=== PATIENT | male | born 1960 | race Caucasian/White ===

== ENCOUNTER → 2020-02-18 | Outpatient (REF) | payer BC ==
[2020-02-18 13:09] LABS: APPEARANCE, URINE CLEAR (CLEAR); BACTERIA, URINE AUTO NEGATIVE (NEGATIVE); BILIRUBIN, URINE AUTO NEGATIVE (NEGATIVE); BLOOD, URINE BLOOD NEGATIVE (NEGATIVE); COLOR, URINE YELLOW (YELLOW); GLUCOSE, URINE (UA) AUTO 3+ mg/dL (NEGATIVE); KETONE, URINE AUTO NEGATIVE (NEGATIVE); LEUKOCYTE ESTERASE, URINE AUTO NEGATIVE (NEGATIVE); NITRITE, URINE AUTO NEGATIVE (NEGATIVE); PROTEIN, URINE AUTO NEGATIVE (NEGATIVE); RBC, URINE AUTO 1 /HPF (0-3); SPECIFIC GRAVITY URINE AUTO 1.036 (1.002-1.035); SQUAMOUS EPITHELIAL CELL UR AU 0 /HPF (0-6); UROBILINOGEN, URINE AUTO 0.2 mg/dL (0.0-2.0); WBC, URINE AUTO 1 /HPF (0-3)
== END ==
LOC: M SMT 12:42
PROVIDERS: ATTEND Nurse Practitioner Women's Health
DX: R97.20 Elevated prostate specific antigen [PSA] (principal)

== ENCOUNTER → 2020-02-22 | Outpatient (CLI) | payer BC ==
--- NOTE | 2020-02-22 12:51 | REPPI ---
Prostate sonography: History: Elevated PSA Sonographic findings: Trans rectal prostate sonography demonstrates unremarkable seminal vesicles. Prostate gland is heterogeneously enlarged with calcifications and cystic changes noted. Glandular dimensions are measured at 5.8 x 4.0 x 5.9 cm with a calculated glandular volume of 71.3 ml. There is a 0.7 cm hypoechoic area in the right mid gland anteriorly. There is a 0.9 cm hypoechoic area on the left mid gland. Transrectal sonographic guidance is provided to Dr. Rosales who performed trans rectal ultrasound guided needle biopsy procedure . Electronically Signed by Nba Harper MD 02/22/2020 12:42 P
== END ==
LOC: M SMT PRO 09:01
PROVIDERS: ATTEND Urology
DX: C61 Malignant neoplasm of prostate (principal)
CPT/HCPCS: 76872; 76942; G0416

== ENCOUNTER → 2020-02-29 | Outpatient (CLI) | payer BC ==
[2020-02-29 17:57] LABS: BLOOD UREA NITROGEN 17 MG/DL (7-18); CALCIUM LEVEL 9.3 MG/DL (8.5-10.1); CARBON DIOXIDE LEVEL 30 MEQ/L (21-32); CHLORIDE LEVEL 103 MEQ/L (98-107); CREATININE FOR GFR 0.98 MG/DL (0.70-1.30); GLOMERULAR FILTRATION RATE > 60.0 (>56); GLUCOSE, FASTING 251 MG/DL (70-100); POTASSIUM SERUM 4.1 MEQ/L (3.5-5.1); SODIUM LEVEL 139 MEQ/L (136-145)
== END ==
LOC: M LAB 16:22
PROVIDERS: ATTEND Urology
DX: C61 Malignant neoplasm of prostate (principal)

== ENCOUNTER → 2020-04-01 | Outpatient (CLI) | payer BC ==
[~2020-04-01] MED LIST: ATOR1TAB19 PO; CIPR-249 PO; DOCU100C16 PO; INSUHUMDS SC; LISI10TA4 PO; METF10004 PO; PERCOCET PO; TRES100I SC; TRUL0.5I SC
== END ==
LOC: M LABSMTC 08:01
PROVIDERS: ATTEND Anesthesiology
DX: Z01.818 Encounter for other preprocedural examination (principal); Z11.59 Encounter for screening for other viral diseases

== ENCOUNTER 2020-04-04 07:30 | Inpatient (IN) | payer BC ==
[~2020-04-04] VITALS: Ht 185.4 cm; Wt 113.1 kg
[~2020-04-04 07:30] MED LIST changes: -CIPR-249 PO; -DOCU100C16 PO; +HEPARIN SOD (PORCINE) 5000UNITS/ML VIAL (J1644 PER 1000UNITS) SQ ONE; +LR 1,000 ML IV ONE; -PERCOCET PO; +ceFAZolin SOD 1 GM in D5W MINI-BAG PLUS 50 ML IV ONE; +ceFAZolin SOD 2 GM in IV 1 EA IV ONE
[2020-04-04] MEDS ORDERED: fentaNYL 250 MCG/5 ML INJECTION (J3010) As Ordered ONE (09:40)
[2020-04-04] MEDS ORDERED: ROCURONIUM BROMIDE 50 MG/5 ML VIAL As Ordered ONE ×2 (09:40→12:48)
[2020-04-04] MEDS ORDERED: LIDOCAINE 2% 100MG/5ML SDV (FOR ANES.) As Ordered ONE (09:40)
[2020-04-04] MEDS ORDERED: propofoL 200 MG/20 ML VIAL As Ordered ONE ×2 (09:40→16:47)
[2020-04-04] MEDS ORDERED: MIDAZOLAM INJ 2MG/2ML VIAL (J2250 PER 1MG) As Ordered ONE (09:40)
[2020-04-04] MEDS ORDERED: ceFAZolin SOD 2 GM in IV 1 EA IV ONE (11:30)
[2020-04-04] MEDS ORDERED: ceFAZolin SOD 1 GM in D5W MINI-BAG PLUS 50 ML IV ONE (11:30)
[2020-04-04] MEDS ORDERED: LIDOCAINE 1% SDV 30ML VIAL As Ordered ONE (11:35)
[2020-04-04] MEDS ORDERED: BUPIVACAINE HCL 0.25% 30ML VIAL As Ordered ONE (11:35)
[2020-04-04] MEDS ORDERED: NS 1,000 ML IV SCH (12:08)
[2020-04-04] MEDS ORDERED: MORPHINE 2 MG/ML 1ML VIAL (J2270) IV PRN (12:15)
[2020-04-04] MEDS ORDERED: GLUCAGON INJ 1MG VIAL SC PRN (12:15)
[2020-04-04] MEDS ORDERED: GLUCOSE 4GM CHEW TABLET PO PRN (12:15)
[2020-04-04] MEDS ORDERED: DEXTROSE 50% 50 ML SYRINGE IV PRN (12:15)
[2020-04-04] MEDS ORDERED: PERCOCET 5MG/325MG TAB PO PRN ×3 (12:15→18:30)
[2020-04-04] MEDS ORDERED: HYDROmorphone HCL 2 MG/ML 1ML VIAL (J1170) As Ordered ONE (12:49)
[2020-04-04] MEDS ORDERED: ONDANSETRON 4MG/2ML VIAL As Ordered ONE (13:43)
[2020-04-04] MEDS ORDERED: ACETAMINOPHEN 1000MG 100ML IV BTL (OFIRMEV) (J0131 PER 10MG) As Ordered ONE (13:44)
[2020-04-04] MEDS ORDERED: KETOROLAC 60 MG/2 ML VIAL As Ordered ONE (13:44)
[2020-04-04] MEDS ORDERED: METOCLOPRAMIDE INJ 10MG/2ML VIAL (J2765 PER 1) As Ordered ONE (13:44)
[2020-04-04] MEDS: HumaLOG INSULIN (NovoLOG) PER UNIT SC SCH ×2 (17:30→21:00)
--- NOTE | 2020-04-04 18:24 | ROOPDOC ---
[facility] Report Of Operation Report of Operation DATE OF PROCEDURE: 04/04/20 PREPROCEDURE DIAGNOSES: Prostate Cancer. POSTPROCEDURE DIAGNOSES: Prostate Cancer. PROCEDURE: Robotic-assisted Laparoscopic Radical Prostatectomy with Bilateral Pelvic Lymph Node Dissection. SURGEON: Deb Auguste MD GRIPS: Xiomy Bae NP ANESTHESIA: General. OPERATIVE INDICATIONS: This is a 73 year old male with high risk clinical T1c Leatha 4+3 prostate cancer, here today for the above procedure for treatment. DESCRIPTION OF PROCEDURE: The patient was brought to the operating room and general anesthesia was induced. Prophylactic antibiotics were infused. He was then placed in the supine position and prepped and draped in the usual sterile fashion. At this point, a Arroyo catheter was inserted into the bladder and the balloon was filled with 10 mL of sterile water. We then made a midline incision just above the umbilicus for an 8 mm port. A Veress needle was utilized to achieve pneumoperitoneum. Next, an 8 mm port was inserted into the incision and subsequently a camera was inserted. There were no injuries from the Veress needle or initial trocar placement. Then three robotic ports were placed in the usual configuration in line just b elow the level of the umbilicus. A 12 mm front end assistant port was placed just lateral and at the level of the umbilicus. Once all the ports were placed, the robot was docked. Lysis of adhesions between the sigmoid colon and abdominal wall was then performed. Next, the bladder was then released from the anterior abdominal wall using electrocautery. Once the bladder was dropped, the fat overlying the prostate was cleared using electrocautery. The superficial dorsal vein was controlled with electrocautery. The endopelvic fascia was opened on both sides and the dorsal venous complex was cleared. Next, a #0 Vicryl [id number] stitch was placed around the dorsal venous complex. Once that was done, the bladder was opened and dissected away from the prostate. At this point, the prostate was lifted up. At this point, the prostate was lifted up. The vasa deferentia were identified in the midline. They were controlled with electrocautery and then transected. The seminal vesicles were also dissected off bilaterally. I then started dissecting the prostate off the rectum. This took a moderate amount of time as the prostate appeared to be more adhered to the rectum and inflamed posteriorly than what his normally seen. Whereas the prostate can normally be dissected away from the rectum using mostly blunt dissection, this was not possible. After carefully dissecting the prostate off the rectum using cold scissors, and ligating and transecting the pedicles, the prostate was only connected by the urethra. At this point, the dorsal venous complex was transected with electrocautery. The urethra was then opened and the catheter was withdrawn and the posterior urethra was transected, thus freeing the prostate. At this point, we checked for hemostasis and it did appear very good. Next, we performed bilateral pelvic lymph node dissection. This was done in a standard fashion. The limits of dissection were the iliac vein proximally, the obturator nerve distally, the pelvic sidewall laterally, and the bladder mediall y. All lymphatic tissue within these limits was removed. I performed the same procedure on both the right and left sides. Hemostasis was then obtained with a combination of bipolar electrocautery and Weck clips. The lymphatic packets were then placed in separate Endo Catch bags for future retrieval. Once hemostasis was confirmed, I then moved on to perform the vesicourethral avni stomosis. The vesicourethral anastomosis was performed in running fashion using a Quill stitch. Once this was done, the final #20-[place] Arroyo catheter was placed. The balloon was filled with 15 mL of sterile water. Upon completion of the vesicourethral anastomosis, it was tested by filling the bladder with sterile water. The anastomosis appeared to be watertight. At this point, the prostate and seminal vesicles were placed in an Endo Catch bag for future retrieval. The robot was then undocked. A Marielena fascial closure device was utilized to place a #0 Vicryl suture between the fascia of the 12 mm front end assistant port. At this point, a Ebenezer- Pearson drain was brought in through the left robotic port skin site and the drain was positioned anterior to the bladder. The drain was secured to the skin with #2-0 Ethilon suture. Next, all the remaining ports were removed and there did not appear to be any bleeding from any of the port sites. The prostate, as well as the lymphatic packets were then extracted from the camera port site after the skin was extended. The fascia in this incision was then closed with a running #0 Vicryl stitch. The previously placed #0 Vicryl free ties through the front end assistant port were then tied down and all incisions were irrigated. Last, all of the incisions were closed with running subcuticular #4-0 Monocryl sutures. Local anesthesia was applied. Dermabond was then applied to the incisions. This marked the conclusion of the procedure. The patient was then awakened from anesthesia and transported to the recovery room in stable condition. ESTIMATED BLOOD LOSS: 400 mL. COMPLICATIONS: None. SPECIMENS: Prostate and seminal vesicles, right pelvic lymph nodes, left pelvic lymph nodes. PLAN: The patient will be admitted to the hospital postoperatively, and he will likely be discharged home within the next 1-2 days. DEB AUGUSTE MD April 04, 2020 18:24
[2020-04-04] MEDS ORDERED: ONDANSETRON 4MG/2ML VIAL IV PRN (18:30)
[2020-04-04] MEDS ORDERED: fentaNYL 100 MCG/2 ML INJECTION (J3010) IV PRN (18:30)
[2020-04-04 19:12] LABS: HEMOGLOBIN 14.4 g/dl (13.5-17.5); MEAN CORPUSCULAR HEMOGLOBIN 28.4 pg (27.0-33.0); MEAN CORPUSCULAR HGB CONC 32.7 g/dl (32.0-36.5); MEAN CORPUSCULAR VOLUME 86.8 fl (80.0-96.0); PLATELET COUNT, AUTOMATED 336 10^3/uL (150-450); RED BLOOD COUNT 5.07 10^6/uL (4.30-6.10); WHITE BLOOD COUNT 17.2 10^3/uL (4.0-10.0)
[2020-04-04 19:35] LABS: BLOOD UREA NITROGEN 28 MG/DL (7-18); CALCIUM LEVEL 8.2 MG/DL (8.5-10.1); CARBON DIOXIDE LEVEL 23 MEQ/L (21-32); CHLORIDE LEVEL 107 MEQ/L (98-107); CREATININE FOR GFR 1.17 MG/DL (0.70-1.30); GLOMERULAR FILTRATION RATE > 60.0 (>56); GLUCOSE, FASTING 193 MG/DL (70-100); POTASSIUM SERUM 4.8 MEQ/L (3.5-5.1); SODIUM LEVEL 140 MEQ/L (136-145)
[2020-04-04 20:05] VITALS: BP 154/76
[2020-04-04 20:30] VITALS: BP 148/72
[2020-04-04 21:00] VITALS: BP 142/73
[2020-04-04] MEDS: DOCUSATE SODIUM 100 MG CAP PO SCH (21:14)
[2020-04-04] MEDS: ONDANSETRON 4MG/2ML VIAL IV PRN (21:14)
[2020-04-04] MEDS: HEPARIN SOD (PORCINE) 5000UNITS/ML VIAL (J1644 PER 1000UNITS) SC SCH (21:14)
[2020-04-04] MEDS: ATORVASTATIN 10 MG TAB PO SCH (21:14)
[2020-04-04] MEDS: lisinopriL 10 MG TAB PO SCH (21:14)
[2020-04-04] MEDS: ceFAZolin SOD 1 GM in D5W MINI-BAG PLUS 50 ML IV SCH (21:15)
[2020-04-04 22:00] VITALS: BP 137/71
[2020-04-04 23:00] VITALS: BP 133/71
[2020-04-05] VITALS (8 sets, daily range): BP systolic 126–144; BP diastolic 60–85; O2SAT 94–95
[2020-04-05] MEDS: ceFAZolin SOD 1 GM in D5W MINI-BAG PLUS 50 ML IV SCH ×2 (03:00→12:51)
[2020-04-05] MEDS: ONDANSETRON 4MG/2ML VIAL IV PRN (03:25)
[2020-04-05] MEDS: HEPARIN SOD (PORCINE) 5000UNITS/ML VIAL (J1644 PER 1000UNITS) SC SCH ×3 (06:27→22:27)
[2020-04-05 06:54] LABS: HEMATOCRIT 40.5 % (42.0-52.0); HEMOGLOBIN 13.4 g/dl (13.5-17.5); MEAN CORPUSCULAR HEMOGLOBIN 28.9 pg (27.0-33.0); MEAN CORPUSCULAR HGB CONC 33.1 g/dl (32.0-36.5); MEAN CORPUSCULAR VOLUME 87.5 fl (80.0-96.0); PLATELET COUNT, AUTOMATED 310 10^3/uL (150-450); RED BLOOD COUNT 4.63 10^6/uL (4.30-6.10); WHITE BLOOD COUNT 14.3 10^3/uL (4.0-10.0)
[2020-04-05 07:12] LABS: BLOOD UREA NITROGEN 35 MG/DL (7-18); CALCIUM LEVEL 7.9 MG/DL (8.5-10.1); CARBON DIOXIDE LEVEL 17 MEQ/L (21-32); CHLORIDE LEVEL 103 MEQ/L (98-107); CREATININE FOR GFR 1.22 MG/DL (0.70-1.30); GLOMERULAR FILTRATION RATE > 60.0 (>56); GLUCOSE, FASTING 253 MG/DL (70-100); SODIUM LEVEL 138 MEQ/L (136-145)
--- NOTE | 2020-04-05 07:47 | IPNPDOC ---
Subjective Review oF Systems Chief Complaint The patient is a 60-year-old male admitted with a reason for visit of Prostate Cancer. Events since Last Encounter The patient vomited last night and early this morning. He feels better now, denying nausea. Good pain control. He ambulated once this morning. No f/c/ns. Objective Physical Examination General Exam: Alert, Cooperative, No Acute Distress ABDOMEN EXAM: Soft, Tenderness (mild), Other (incisions clean/dry/intact; MERARI draining serosanguinous fluid) Skin Exam: Nl turgor and temperature Neuro Exam: Normal Speech Psych Exam: Mental status NL, Mood NL Other physical findings catheter draining light pink urine Vital Signs/I&O Vital Signs Date Time Temp Pulse Resp B/P (MAP) Pulse Ox O2 Delivery O2 Flow Rate FiO2 04/05/20 06:00 98.8 111 17 127/85 (99) 95 Room Air I&O- Last 24 Hours up to 6 AM 04/05/20 06:00 Intake Total 3185 ml Output Total 2163 ml Balance 1022 ml Laboratory Data Labs 24H Laboratory Tests 2 04/04/20 11:36: Bedside Glucose (Misc Panel) 133H 04/04/20 18:45: Bedside Glucose (Misc Panel) 183H 04/04/20 18:56: Nucleated Red Blood Cells % (auto) 0.0, Anion Gap 10, Glomerular Filtration Rate > 60.0, Calcium Level 8.2L 04/04/20 20:56: Bedside Glucose (Misc Panel) 210H 04/05/20 05:38: Nucleated Red Blood Cells % (auto) 0.0, Anion Gap 18H, Glomerular Filtration Rate > 60.0, Calcium Level 7.9L CBC/BMP Laboratory Tests 04/04/20 18:56 04/05/20 05:38 FSBS Laboratory Tests Test 04/04/20 11:36 04/04/20 18:45 04/04/20 20:56 Range/Units Bedside Glucose (Misc Panel) 133 183 210 70-105 MG/DL Assessment/Plan Date Seen The patient was seen on 04/05/20. Patient Summary This is a 60 y/o M POD1 s/p RALP w/ BPLND. Good pain control. Had emesis this morning, but nausea now resolved. Hb 13.4. Cr 1.2. Good UOP. Normal MERARI output. Plan/VTE VTE Prophylaxis Ordered?: Yes VTE Exclusion Mechanical Proph: N/A:VTE Prophy Ordered VTE Exclusion Pharmacological: N/A:VTE Prophy Ordered Plan/Urinary Catheter Urinary Catheter: Other Catheter: (catheter will need to stay in for at least 7 days for healing of vesicourethral anastomosis) Plan - d/c IVF - percocet prn pain - strict I/Os - cont home meds - sliding scale insulin - SCDs when in bed - ambulate - incentive spirometry - anticipate discharge home tomorrow DEB AUGUSTE MD April 05, 2020 07:47
[2020-04-05] MEDS: ATORVASTATIN 10 MG TAB PO SCH (08:11)
[2020-04-05] MEDS: lisinopriL 10 MG TAB PO SCH (08:12)
[2020-04-05] MEDS: HumaLOG INSULIN (NovoLOG) PER UNIT SC SCH ×4 (08:12→20:33)
[2020-04-05] MEDS: DOCUSATE SODIUM 100 MG CAP PO SCH ×2 (08:12→20:32)
[2020-04-05] MEDS: ACETAMINOPHEN TAB 650MG DOSE (2X325MG) PO PRN (20:33)
[2020-04-06 02:00] VITALS: BP 128/71
[2020-04-06 06:00] VITALS: BP 120/62
[2020-04-06] MEDS ORDERED: CIPROFLOXACIN 500MG TABLET PO SCH (06:00)
[2020-04-06 06:22] LABS: HEMATOCRIT 35.8 % (42.0-52.0); HEMOGLOBIN 11.7 g/dl (13.5-17.5); MEAN CORPUSCULAR HEMOGLOBIN 28.5 pg (27.0-33.0); MEAN CORPUSCULAR HGB CONC 32.7 g/dl (32.0-36.5); MEAN CORPUSCULAR VOLUME 87.1 fl (80.0-96.0); PLATELET COUNT, AUTOMATED 231 10^3/uL (150-450); RED BLOOD COUNT 4.11 10^6/uL (4.30-6.10)
[2020-04-06] MEDS: HEPARIN SOD (PORCINE) 5000UNITS/ML VIAL (J1644 PER 1000UNITS) SC SCH (06:27)
[2020-04-06 06:49] LABS: BLOOD UREA NITROGEN 29 MG/DL (7-18); CALCIUM LEVEL 8.3 MG/DL (8.5-10.1); CARBON DIOXIDE LEVEL 26 MEQ/L (21-32); CHLORIDE LEVEL 105 MEQ/L (98-107); GLOMERULAR FILTRATION RATE > 60.0 (>56); GLUCOSE, FASTING 196 MG/DL (70-100); POTASSIUM SERUM 4.4 MEQ/L (3.5-5.1); SODIUM LEVEL 139 MEQ/L (136-145)
[2020-04-06] MEDS: ACETAMINOPHEN TAB 650MG DOSE (2X325MG) PO PRN (06:54)
[2020-04-06] MEDS ORDERED: CIPR-249 PO (08:00)
[2020-04-06] MEDS ORDERED: PERCOCET PO (08:00)
[2020-04-06] MEDS ORDERED: DOCU100C16 PO (08:00)
[2020-04-06 08:06] VITALS: BP 124/68
[2020-04-06] MEDS: DOCUSATE SODIUM 100 MG CAP PO SCH (08:06)
[2020-04-06] MEDS: HumaLOG INSULIN (NovoLOG) PER UNIT SC SCH ×2 (08:06→12:00)
[2020-04-06] MEDS: ATORVASTATIN 10 MG TAB PO SCH (08:06)
[2020-04-06] MEDS: lisinopriL 10 MG TAB PO SCH (08:06)
--- NOTE | 2020-04-06 09:04 | IPNPDOC ---
Subjective Review oF Systems Chief Complaint The patient is a 60-year-old male admitted with a reason for visit of Prostate Cancer. Events since Last Encounter No acute events o/n. Good pain control. No n/v. Passing flatus. Ambulating well. No f/c/ns. Objective Physical Examination General Exam: Alert, Cooperative, No Acute Distress ABDOMEN EXAM: Soft, Tenderness (mild), Other (incisions clean/dry/intact; MERARI draining serosanguinous fluid) Skin Exam: Nl turgor and temperature Neuro Exam: Normal Speech Psych Exam: Mental status NL, Mood NL Other physical findings catheter draining pink urine Vital Signs/I&O Vital Signs Date Time Temp Pulse Resp B/P (MAP) Pulse Ox O2 Delivery O2 Flow Rate FiO2 04/06/20 08:06 124/68 04/06/20 06:00 97.6 96 20 98 04/06/20 02:00 Room Air I&O- Last 24 Hours up to 6 AM 04/06/20 06:00 Intake Total 2175 ml Output Total 2630 ml Balance -455 ml Laboratory Data Labs 24H Laboratory Tests 2 04/05/20 11:44: Bedside Glucose (Misc Panel) 279H 04/05/20 16:30: Bedside Glucose (Misc Panel) 276H 04/05/20 20:27: Bedside Glucose (Misc Panel) 305H 04/06/20 05:42: Nucleated Red Blood Cells % (auto) 0.0, Anion Gap 8, Glomerular Filtration Rate > 60.0, Calcium Level 8.3L CBC/BMP Laboratory Tests 04/06/20 05:42 FSBS Laboratory Tests Test 04/05/20 11:44 04/05/20 16:30 04/05/20 20:27 Range/Units Bedside Glucose (Misc Panel) 279 276 305 70-105 MG/DL Assessment/Plan Date Seen The patient was seen on 04/06/20. Patient Summary This is a 60 y/o M POD2 s/p RALP w/ BPLND. Labs w/i normal limits. Good UOP. Normal MERARI output. Plan/VTE VTE Prophylaxis Ordered?: Yes VTE Exclusion Mechanical Proph: N/A:VTE Prophy Ordered VTE Exclusion Pharmacological: N/A:VTE Prophy Ordered Plan/Urinary Catheter Urinary Catheter: Other Catheter: (catheter will need to stay in for at least 7 days for healing of vesicourethral anastomosis) Plan - d/c MERARI drain - cont home meds - sliding scale insulin - ambulate - SCDs when in bed - incentive spirometry - regular diet - discharge home today w/ catheter DEB AUGUSTE MD April 06, 2020 09:04
[2020-04-06 10:00] VITALS: BP 120/65
--- NOTE | 2020-04-07 17:23 | DSES ---
DATE OF ADMISSION: 04/04/2020 DATE OF DISCHARGE: 04/06/2020 ADMISSION DIAGNOSIS: Prostate cancer. DISCHARGE DIAGNOSIS: Prostate cancer. ADMITTING PHYSICIAN: Dr. Lacho Rosales DISCHARGING PHYSICIAN: Dr. aLcho Rosales PROCEDURES PERFORMED: Robotic-assisted laparoscopic radical prostatectomy, bilateral pelvic lymph node dissection on 04/04/2020. HISTORY OF PRESENT ILLNESS: This is a 60-year-old male who underwent a robotic radical prostatectomy with lymph node dissection 04/04/2020. He was admitted to the hospital postoperatively. HOSPITALIZATION COURSE: The patient was admitted to the hospital after undergoing the above-listed procedure. His postoperative course was unremarkable. On postoperative day #1, he was starting to ambulate well. He did have some nausea and vomiting on postoperative day #1. His labs were within acceptable limits on postoperative day #1. Because of the nausea and vomiting, decision was made to keep him until postoperative day #2. By postoperative day #2, the nausea and vomiting resolved. His diet was advanced, and he tolerated a regular diet. His labs continued to be within acceptable limits. He had excellent urine output through his catheter. He had minimal output from the Ebenezer-Pearson drain. His pain was well controlled with oral pain medications. He denie any fevers or chills. Since he was doing well, he was deemed ready for discharge home on postoperative day #2. His Ebenezer-Pearson drain was removed prior to discharge. He was discharged home with his catheter in place with the plan for him to followup in the urology clinic in approximately 1 week for catheter removal and to discuss his pathology results. JOANN
== END 2020-04-06 12:50 | disposition home or self-care (01) | DRG 484 ==
LOC: M OR 11:00 → M MSPAV 20:05
PROVIDERS: ADMIT Urology; ATTEND Urology
PROC: 07BC4ZX Excision of Pelvis Lymphatic, Percutaneous Endoscopic Approach, Diagnostic (ICD-10-PCS; 2020-04-04)
PROC: 8E0W4CZ Robotic Assisted Procedure of Trunk Region, Percutaneous Endoscopic Approach (ICD-10-PCS; 2020-04-04)
PROC: 0VT04ZZ Resection of Prostate, Percutaneous Endoscopic Approach (ICD-10-PCS; principal; 2020-04-04 12:45)
DX: C61 Malignant neoplasm of prostate (principal); E11.9 Type 2 diabetes mellitus without complications; R11.2 Nausea with vomiting, unspecified; E78.5 Hyperlipidemia, unspecified; J45.909 Unspecified asthma, uncomplicated; Z79.4 Long term (current) use of insulin; Z79.899 Other long term (current) drug therapy

== ENCOUNTER → 2020-10-05 | Outpatient (CLI) | payer BC ==
[~2020-10-05] MED LIST changes: +CIPR-249 PO; +DOCU100C16 PO; -HEPARIN SOD (PORCINE) 5000UNITS/ML VIAL (J1644 PER 1000UNITS) SQ ONE; -LR 1,000 ML IV ONE; +PERCOCET PO; -ceFAZolin SOD 1 GM in D5W MINI-BAG PLUS 50 ML IV ONE; -ceFAZolin SOD 2 GM in IV 1 EA IV ONE
--- NOTE | 2020-10-05 15:46 | RADONC.CN ---
Radiation Oncology Hx/Consult Radiation Oncology Consult Date of Service: Oct 05, 2020 Pt Identifier Melchor Corona is a 60 year old male with a history of prostate cancer cT1c Gage 4+3=7 PSA 8.2. He underwent his original biopsy on 02/19/20. He then underwent RP and RPLND on 04/04/[address] Auguste. Pathology showed [id number] high volume Gage 4+3 with positive surgical margins. His PSA persisted and moon to 0.9 ng/ml on 09/25/20. He is referred for salvage RT. Diagnosis/Treatment History Oncologic History PSA trend 02/22/20 PSA 8.2 (pre-op) 05/03/20 0.5 (post-op) 09/25/20 0.9 ng/ml 02/22/20 TRUS biopsy: 09/11 cores positive Auburn 4+3=7 in 2 cores, remainder 3+4 and 3+3 04/04/20 Pathology: A Prostate gland, robotic-assisted laparoscopic radical prostatectomy: Prostatic adenocarcinoma, Auburn score 4+3=7, grade group 3. The carcinoma extensively involves the prostate gland, from apex to base, and is seen in more than 90% of submitted blocks, approximately 50% of prostate volume. The largest focus of carcinoma is more than 2.5 cm, the carcinoma involves the entire space/tissue between peripheral aspect and prostatic urethral lining in some sections. Extraprostatic extension is noted. Extensive perineural invasion is noted. The carcinoma is noted within less than 0.1 mm of multiple inked margins, suspicious for focal minimal involvement of the inked and cauterized posterior margin. The carcinoma invades bilateral seminal vesicles. Focal Auburn pattern 5 is also noted. See summary pT3b N0 MX B Right pelvic lymph nodes, biopsy: Two lymph nodes, negative for malignancy. C Left pelvic lymph nodes, biopsy: Two lymph nodes, negative for malignancy. Summary PROSTATE RADICAL PROSTATECTO - ADENOCARCINOMA GAGE SCORE (GRADE GROUP) - 4+3=7, grade group 3 SITE OF MAIN TUMOR the entire prostate SIZE OF LARGEST FOCUS - >2.5cm PERCENT OF PROSTATE INVOLVED BY TUMOR 50% BILATERAL TUMOR - present HIGH-GRADE PIN - present EXTRACAPSULAR EXTENSION - present MARGINS tumor is very close to several posterior margins, suspicious for focal minimal involvement of posterior inked and cauterized margin near base of seminal vesicle, in a 1 mm area. SEMINAL VESICLE INVOLVEMENT present bilateral PERINEURAL INVASION present extensive LYMPHATIC SPACE INVASION not identified. pT3b N0 MX IPSS 6 MARLENY 4 Interval History Mr. Corona lives in [facility]. Reports he has no urinary incontinence or bother at this time. He has regular bowel movements, no BRBPR. He has ED, no ability to achieve erection. His energy level is good, his weight is stable. He works in the public sector. He has new onset pain in the area of the right iliac bone and SI joint. Present for the last 2 weeks. It is focal, does not hurt to touch but exacerbated with twisting motions. He has not been taking anything for it. He rates it at 4-5/10 at worst. Past Medical History: Asthma DMII HPL HTN Past Surgical History: As above Family History: Adopted Social History: Never smoker 1-2 drinks per week Allergies / Meds Allergies: Coded Allergies: No Known Allergies (Unverified , 03/31/20) Home Meds Active Scripts Oxycodone/Acetaminophen (Oxycodone-Acetaminophen 5-325) 1 Each Tablet, 1 TAB PO Q4HP PRN for MODERATE/SEVERE PAIN (PS 5-10) MDD 6, #25 TAB Prov:DEB AUGUSTE MD 04/06/20 Docusate Sodium (Docusate Sodium) 100 Mg Capsule, 100 MG PO BID, #20 CAP Prov:DEB AUGUSTE MD 04/06/20 Ciprofloxacin HCl (Cipro) 500 Mg Tablet, 500 MG PO DAILY@06 for 7 Days, #7 TAB Prov:DEB AUGUSTE MD 04/06/20 Reported Medications Lisinopril (Lisinopril) 10 Mg Tablet, 10 MG PO DAILY, TAB 03/31/20 Atorvastatin Calcium (Atorvastatin Calcium) 10 Mg Tablet, 10 MG PO DAILY, TAB 03/31/20 Metformin HCl (Metformin HCl) 1,000 Mg Tablet, 1000 MG PO DAILY, TAB 03/31/20 Dulaglutide (Trulicity) 1.5 Mg/0.5 Ml Pen.injctr, 1.5 MG SC QWEEK 03/31/20 Insulin Degludec (Tresiba) 100 Unit/1 Ml Vial, 34 UNIT SC QAM, INJ 03/31/20 Insulin Human Lispro (Humalog) 100 Unit/1 Ml Vial, 1 UNITS SC AC, INJ 03/31/20 Review of Systems Constitutional: Denies: Chills, Fever, Night Sweats Eyes: Denies: Pain, Vision change HEENT: Denies: Head Aches, Dysphagia, Sore Throat Skin: Denies: Rash, Lesions, Bruising Pulmonary: Denies: Dyspnea, Cough Cardiovascular: Denies: Chest Pain, Palpitations, Edema Gastrointestinal: Denies: Nausea, Vomiting, Abdominal Pain, Diarrhea Genitourinary: Denies: Dysuria, Frequency, Incontinence Hematologic: Denies: Bruising, Petecchia, Enlarged Lymph Nodes Endocrine: Denies: Polydipsia, Polyuria Musculoskeletal: Reports: Back pain; Denies: Neck pain, Shoulder pain, Arm pain, Leg pain, Joint pain, Joint sweling, Muscle stiffness Neurological: Denies: Weakness, Numbness, Incoordination Psych: Reports: Mood Normal; Denies: Memory Issues, Thoughts of Self Harm Vital Signs Ht 73" Wt 264 lb BMI 34 T 97 P 97 RR 18 BP 138/65 O2 97% Pain 0 Fatigue 1 General Exam: Positive: Alert, Cooperative, No Acute Distress Eye Exam: Positive: PERRLA, EOMI ENT EXAM: Positive: Mucous membr. moist/pink, Pharynx Normal Neck Exam: Negative: Thyromegaly, Lymphadenopathy Chest Exam: Positive: Normal air movement; Negative: Rales, Rhonchi, Wheezing Heart Exam: Positive: Rate Normal, Regular Rhythm Abdomen Exam: Positive: Soft; Negative: Tenderness, Mass Extremity Exam: Negative: Edema, Tenderness Skin Exam: Positive: Nl turgor and temperature; Negative: Rash Neuro Exam: Positive: Normal Gait, Normal Speech, Cranial Nerves 3-12 NL Psych Exam: Positive: Mental status NL, Mood NL, Memory Intact Other Physical Findings Deferred . No tenderness to palpation over sacrum, SI, iliac bones and ischia bl. Diagnostic and Laboratory Diagnostic Review Radiologic images, relevant labs and pathology reports were personally reviewed and discussed with Mr. Corona. Assessment and Plan Impression Mr. Corona is a 60 year old male with a history of prostate cancer cT1c Gage 4+3=7 PSA 8.2. He underwent his original biopsy on 02/19/20. He then underwent RP and RPLND on 04/04/[address] Auguste. Pathology showed [id number] high volume Auburn 4+3 with positive surgical margins. His PSA persisted and moon to 0.9 ng/ml on 09/25/20. He is referred for salvage RT. Stage [id number] Gage 4+3=7 stage IIIB Performance Status ECOG 0 Plan We had an extensive discussion with Mr. Corona regarding the diagnosis at hand and available therapeutic options. He is doing well from a urinary standpoint with minimal nocturia as his only symptom. He has no incontinence. He has ED since surgery with MARLENY score of 4. For his new onset right sacroiliac pain I am ordering a bone scan to evaluate, as I am suspicious he may harbor a metastasis. If this study is negative he would be appropriate for salvage RT. I would give 68.4 Gy in 38 fractions with VMAT planning. Based on his 0.9 ng/ml PSA I would include the pelvic LN as the >0.4 PSA subgroup on the SPPORT trial seemed to benefit from tg RT in addition to prostate bed directed RT and ADT. I will ask Dr. Auguste to consider giving him 6 months of ADT along with RT as per the aforementioned SPPORT trial data and the [place] [facility] [place]ogram predicts a 32% chance of bPFS with RT alone versus 58% with RT+ADT at 6 years. I described this rationale to the patient in detail along with the side effects of ADT and RT including fatigue, weight gain, hot flashes, irritative voiding symptoms, change in bowel habits and late rectal bleeding. He wishes to proceed as soon as possible. We discussed the logistics of receiving radiation therapy in detail including the need for a 1-time planning session. After discussing the risks, benefits and alternatives to radiation therapy, Mr. Corona was amenable to pursuing radiotherapy. All questions were answered to the patient's satisfaction. We instructed the patient that if there were any questions,concerns or changes i n clinical status in the interim to contact us. Recommendations Salvage RT with 6 month ADT 68.4 Gy in 38 fractions Bone scan to evaluate new onset right sacroiliac pain Simulation in the coming 1-2 weeks DENA RUBIO MD Oct 05, 2020 15:46
== END ==
LOC: M ONCR 13:59
PROVIDERS: ATTEND Radiology Radiation Oncology
DX: C61 Malignant neoplasm of prostate (principal)

== ENCOUNTER 2020-10-18 13:59 | Outpatient (RCR) | payer BC | END 2020-10-30 | LOC: M ONCR 13:59 | PROVIDERS: ATTEND General Practice | DX: C61 Malignant neoplasm of prostate (principal) ==

== ENCOUNTER → 2020-10-19 | Outpatient (CLI) | payer BC ==
--- NOTE | 2020-10-19 16:04 | REP ---
INDICATION: PROSTATE CA. COMPARISON: None. TECHNIQUE/RADIOTRACER AND DOSE: Following the intravenous administration of 21.7 mCi technetium 99 M MDP, images of the whole body are performed report 5 hours post injection in multiple projections. FINDINGS: There is arthritic uptake at the acromioclavicular joints, in the anterior inferior cervical spine region, at the right sternoclavicular joint, at the sacroiliac joints. There is no compelling scintigraphic evidence of osseous metastases. Renal and bladder activity are seen. IMPRESSION: No compelling scintigraphic evidence of osseous metastases. <Electronically signed by Joseph Fernández > 10/19/20 1600
== END ==
LOC: M RAD 10:20
PROVIDERS: ATTEND General Practice
DX: C61 Malignant neoplasm of prostate (principal)
CPT/HCPCS: 78306; A9503

== ENCOUNTER → 2020-11-30 | Outpatient (RCR) | payer BC ==
[~2020-11-30] MED LIST changes: +MEDR4PAK PO
== END ==
LOC: M ONCR 10-31 13:07
PROVIDERS: ATTEND General Practice
DX: C61 Malignant neoplasm of prostate (principal)

== ENCOUNTER 2020-12-27 12:50 | Outpatient (RCR) | payer BC | END 2020-12-31 | LOC: M ONCR 12:50 | PROVIDERS: ATTEND General Practice | DX: C61 Malignant neoplasm of prostate (principal) ==

== ENCOUNTER → 2021-01-23 | Outpatient (REF) | payer BC ==
[~2021-01-23] MED LIST changes: +LISI10TA22 PO; -LISI10TA4 PO
== END ==
LOC: M LABSMT 13:35
PROVIDERS: ATTEND Urology
DX: C61 Malignant neoplasm of prostate (principal)

== ENCOUNTER → 2021-03-19 | Outpatient (REF) | payer BC ==
[2021-03-19 19:49] LABS: CREATININE, URINE < 13.0 MG/DL; MALB URINE SIEMENS 6.4 MG/L
== END ==
LOC: M LAB REF 17:09
PROVIDERS: ATTEND Nurse Practitioner Family
DX: E11.65 Type 2 diabetes mellitus with hyperglycemia (principal)

== ENCOUNTER → 2021-07-24 | Outpatient (REF) ==
--- NOTE | 2021-07-30 08:58 | SLEEPHOME ---
[facility] HOME SLEEP TEST DATE: 07/24/2021 ORDERED BY: Shanice Slade at [facility] Diagnostic home sleep testing was performed due to concern for the obstructive sleep apnea syndrome. For testing, a nocturnal T3 respiratory monitoring device was used. Continuous record was made of pulse, oxygen saturation, air flow, chest and abdominal strain, and body position. Six hours and 59 minutes of data were reviewed. There were 6 hours and 59 minutes marked as time in bed. During the interval marked time in bed, there were only 15 respiratory events identified of 10 seconds in duration or greater for a respiratory event index of 2.1. The events that were seen were primarily obstructive. Baseline pulse rate 66, pulse rate range 59-129, baseline saturation was 95%, saturations fell only to 92%, and testing was performed in both the supine and non-supine positions. IMPRESSION: Equivocal diagnostic home sleep test with mild respiratory patterning. COMMENT: The frequency of respiratory events identified during this testing was not as great as that seen in patients with overt obstructive sleep apnea syndrome.
== END ==
LOC: M SLEEP HO 10:00
PROVIDERS: ATTEND Student in an Organized Health Care Education/Training Program
DX: G47.33 Obstructive sleep apnea (adult) (pediatric) (principal)

== ENCOUNTER → 2021-09-19 | Outpatient (CLI) | payer BC ==
--- NOTE | 2021-09-19 14:53 | RADONC ---
Radiation Oncology Hx/FUP Radiation Oncology Hx/FUP Date of Service: Sep 19, 2021 Pt Identifier Melchor Corona is a 61 year old male seen for a followup visit today at the department of radiation oncology for a history of T1c Gage 4+3=7 PSA 8.2. He underwent his original biopsy on 02/19/20. He then underwent RP and RPLND on 04/04/[address] Rosales. Pathology showed [id number] high volume Gage 4+3 with positive surgical margins. His PSA persisted and moon to 0.9 ng/ml on 09/25/20. He completed salvage RT 68.4 Gy in 38 fractions on 12/27/20. He also received 6 months of Eligard with this from Dr. Rosales October 2020. Diagnosis/Treatment History Oncologic History PSA trend 02/22/20 PSA 8.2 (pre-op) 05/03/20 0.5 (post-op) 09/25/20 0.9 03/21/21 <0.1 (post-RT) 09/13/21 <0.1 Testosterone 03/21/21 20 09/13/21 272 02/22/20 TRUS biopsy: 09/11 cores positive Gage 4+3=7 in 2 cores, remainder 3+4 and 3+3 04/04/20 Pathology: A Prostate gland, robotic-assisted laparoscopic radical prostatectomy: Prostatic adenocarcinoma, Gage score 4+3=7, grade group 3. The carcinoma extensively involves the prostate gland, from apex to base, and is seen in more than 90% of submitted blocks, approximately 50% of prostate volume. The largest focus of carcinoma is more than 2.5 cm, the carcinoma involves the entire space/tissue between peripheral aspect and prostatic urethral lining in some sections. Extraprostatic extension is noted. Extensive perineural invasion is noted. The carcinoma is noted within less than 0.1 mm of multiple inked margins, suspi cious for focal minimal involvement of the inked and cauterized posterior margin. The carcinoma invades bilateral seminal vesicles. Focal [place] pattern 5 is also noted. See summary pT3b N0 MX B Right pelvic lymph nodes, biopsy: Two lymph nodes, negative for malignancy. C Left pelvic lymph nodes, biopsy: Two lymph nodes, negative for malignancy. Summary PROSTATE RADICAL PROSTATECTO - ADENOCARCINOMA GAGE SCORE (GRADE GROUP) - 4+3=7, grade group 3 SITE OF MAIN TUMOR the entire prostate SIZE OF LARGEST FOCUS - >2.5cm PERCENT OF PROSTATE INVOLVED BY TUMOR 50% BILATERAL TUMOR - present HIGH-GRADE PIN - present EXTRACAPSULAR EXTENSION - present MARGINS tumor is very close to several posterior margins, suspicious for focal minimal involvement of posterior inked and cauterized margin near base of seminal vesicle, in a 1 mm area. SEMINAL VESICLE INVOLVEMENT present bilateral PERINEURAL INVASION present extensive LYMPHATIC SPACE INVASION not identified. Interval History Melchor feels well, no bowel or bladder complaints. Nocturia is down to 2-3x. Hot flashes have totally abated. Appetite and energy levels excellent. Current Therapy Surveillance Stage [id number] Gage 4+3=7 stage IIIB Social History: Never smoker 1-2 drinks per week Allergies / Meds Allergies: Coded Allergies: No Known Allergies (Unverified , 03/31/20) Home Meds Reported Medications Lisinopril (Lisinopril) 10 Mg Tablet, 10 MG PO DAILY, TAB 03/31/20 Atorvastatin Calcium (Atorvastatin Calcium) 10 Mg Tablet, 10 MG PO DAILY, TAB 03/31/20 Metformin HCl (Metformin HCl) 1,000 Mg Tablet, 1000 MG PO DAILY, TAB 03/31/20 Dulaglutide (Trulicity) 1.5 Mg/0.5 Ml Pen.injctr, 1.5 MG SC QWEEK 03/31/20 Insulin Degludec (Tresiba) 100 Unit/1 Ml Vial, 34 UNIT SC QAM, INJ 03/31/20 Insulin Human Lispro (Humalog) 100 Unit/1 Ml Vial, 1 UNITS SC AC, INJ 03/31/20 Review of Systems Review of Systems Constitutional: Denies: Fatigue Eyes: Denies: Pain HEENT: Denies: Head Aches Skin: Denies: Rash Pulmonary: Denies: Dyspnea Cardiovascular: Denies: Chest Pain Gastrointestinal: Denies: Abdominal Pain, Hematochezia Genitourinary: Denies: Dysuria, Frequency, Incontinence Neurological: Denies: Weakness, Numbness Psych: Reports: Mood Normal Physical Examination Vital Signs Wt 270 lbs T 96.9 P 83 RR 16 BP 126/54 O2 98% Pain 0 Fatigue 0 General Exam: Alert, Cooperative, No Acute Distress Eye Exam: PERRLA, EOMI ENT EXAM: Atraumatic Neck Exam: Supple Chest Exam: Clear to auscultation Heart Exam: Rate Normal Abdomen Exam: Soft Extremity Exam: Negative: Edema Skin Exam: Nl turgor and temperature Neuro Exam: Normal Gait, Normal Speech, Cranial Nerves 3-12 NL Psych Exam: Mental status NL Diagnostic and Laboratory Diagnostic Review Radiologic images, relevant labs and pathology reports were personally reviewed and discussed with Mr. Corona. Assessment and Plan Impression Assessment Mr. Corona is a 61 year old male with a history of T1c [place] 4+3=7 PSA 8.2. He underwent his original biopsy on 02/19/20. He then underwent RP and RPLND on 04/04/[address] Rosales. Pathology showed [id number] high volume Gage 4+3 with positive surgical margins. His PSA persisted and moon to 0.9 ng/ml on 09/25/20. He completed salvage RT 68.4 Gy in 38 fractions on 12/27/20. He also received 6 months of Eligard with this from Dr. Rosales October 2020. Melchor is doing great, ADT side effects have resolved completely. He has no bowel or urinary bother. His PSA is undetectable with normalized testosterone. This is an ideal result. I will see him again in 6 months with PSA check. He is splitting follow up with Dr. Rosales which is important as well. Performance Status ECOG 0 Plan Follow up in 6 months with PSA Mr. Corona was encouraged to call with questions or concerns in the interim period. Billing Statement Total time of [22] minutes was spent preparing for the visit [1], obtaining HPI [5], examining the patient [1], reviewing diagnostic tests [2], discussing management options [6], coordinating care [1] and writing this note [6]. DENA RUBIO MD Sep 19, 2021 14:53
== END ==
LOC: M ONCR 12:58
PROVIDERS: ATTEND General Practice
DX: C61 Malignant neoplasm of prostate (principal); Z79.4 Long term (current) use of insulin; Z79.84 Long term (current) use of oral hypoglycemic drugs; Z79.899 Other long term (current) drug therapy; Z92.3 Personal history of irradiation

== ENCOUNTER → 2022-03-27 | Outpatient (CLI) | payer BC | LOC: M ONCR 13:13 | PROVIDERS: ATTEND General Practice | DX: C61 Malignant neoplasm of prostate (principal); Z79.4 Long term (current) use of insulin; Z92.3 Personal history of irradiation ==

== ENCOUNTER → 2023-03-03 | Outpatient (CLI) | payer BC | LOC: M PLALAB 16:03 | PROVIDERS: ATTEND Urology | DX: C61 Malignant neoplasm of prostate (principal) ==

== ENCOUNTER → 2023-03-28 | Outpatient (CLI) | payer BC | LOC: M ONCR 13:09 | PROVIDERS: ATTEND General Practice | DX: C61 Malignant neoplasm of prostate (principal); R97.21 Rising PSA following treatment for malignant neoplasm of prostate; N52.9 Male erectile dysfunction, unspecified; Z79.4 Long term (current) use of insulin; Z79.84 Long term (current) use of oral hypoglycemic drugs; Z79.899 Other long term (current) drug therapy; Z92.29 Personal history of other drug therapy; Z92.3 Personal history of irradiation ==

== ENCOUNTER → 2023-09-09 | Outpatient (CLI) | payer BC | LOC: M PLALAB 09:15 | PROVIDERS: ATTEND Urology | DX: C61 Malignant neoplasm of prostate (principal) ==

== ENCOUNTER → 2024-04-12 | Outpatient (CLI) | payer BC | LOC: M PLALAB 08:56 | PROVIDERS: ATTEND Urology | DX: C61 Malignant neoplasm of prostate (principal) ==

== ENCOUNTER → 2024-07-28 | Outpatient (CLI) | payer BC | LOC: M PLALAB 13:27 | PROVIDERS: ATTEND Urology | DX: C61 Malignant neoplasm of prostate (principal) ==

== ENCOUNTER → 2024-11-29 | Outpatient (CLI) | payer BC ==
[2024-11-29 18:25] LABS: THYROID STIMULATING HORMONE 2.195 uIU/ML (0.55-4.78)
[2024-11-29 18:27] LABS: FREE T4 1.29 NG/DL (0.89-1.76)
== END ==
LOC: M PLALAB 15:16
PROVIDERS: ATTEND Nurse Practitioner Family
DX: E04.2 Nontoxic multinodular goiter (principal)

== ENCOUNTER → 2024-12-16 | Outpatient (CLI) | payer BC | LOC: M PLALAB 14:07 | PROVIDERS: ATTEND Urology | DX: C61 Malignant neoplasm of prostate (principal) ==

== ENCOUNTER → 2025-02-02 | Outpatient (REF) | payer BC | LOC: M LAB REF 17:37 | PROVIDERS: ATTEND Internal Medicine Endocrinology, Diabetes & Metabolism | DX: E04.2 Nontoxic multinodular goiter (principal) ==

== ENCOUNTER → 2025-03-10 | Outpatient (CLI) | payer BC | LOC: M RAD 15:19 | PROVIDERS: ATTEND Surgery | DX: E04.2 Nontoxic multinodular goiter (principal) ==

== ENCOUNTER → 2025-03-24 | Outpatient (CLI) | payer BC | LOC: M PLALAB 14:29 | PROVIDERS: ATTEND Urology | DX: C61 Malignant neoplasm of prostate (principal) ==

== ENCOUNTER → 2025-06-02 | Outpatient (CLI) | payer BC ==
[2025-06-02 12:50] LABS: FREE T4 1.63 NG/DL (0.89-1.76)
[2025-06-06 15:09] LABS: THRYOGLOBULIN ANTIBODIES (ATA) < 1 IU/mL (< or = 1); THYROGLOBULIN QUANTITATIVE 0.2 ng/mL (2.8-40.9)
== END ==
LOC: M LAB 11:27
PROVIDERS: ATTEND Nurse Practitioner Family
DX: C73 Malignant neoplasm of thyroid gland (principal)

== ENCOUNTER → 2025-06-15 | Outpatient (CLI) | payer BC | LOC: M PLALAB 10:08 | PROVIDERS: ATTEND Urology | DX: C61 Malignant neoplasm of prostate (principal) ==